=== PATIENT | female | born 1965 | race Caucasian/White ===

== ENCOUNTER 2020-02-04 19:17 | Emergency (ER) | payer OTHER, SELFPAY ==
[2020-02-04 19:31] VITALS: BP 131/83; PULSE 86; RESP 16; TEMP 37.6; O2SAT 97
--- NOTE | 2020-02-04 19:32 | PC.NURSE ---
in br to obtain ua spec.
--- NOTE | 2020-02-04 19:33 | ED.FEMALEGU ---
HPI - Female Genitourinary General Chief complaint: Urogenital-Female Stated complaint: kidney infection Time Seen by Provider: 02/04/20 19:33 Source: patient Mode of arrival: ambulatory Limitations: no limitations History of Present Illness HPI Narrative: Tracie Allen is a 54 yo female with a PMH renal calculi, uti, who comes to express care with c/o lower back pain and dysuria that started on Friday. Rates pain as 10/10. Pain is in her lower back and is dull persistent pain. states this is a recurrent situation for her as she has had multiple UTIs and renal calculi, pain is gradually intensified although she is not having any dysuria per se. Patient states that the Bactrim has worked well for her in the past. Related Data Allergies Allergy/AdvReac Type Severity Reaction Status Date / Time No Known Allergies Allergy Unknown Unverified 11/03/15 17:33 Review of Systems Review of Systems: Narrative: CONSTITUTIONAL: Denies fever, chills, sweats. EYES: Denies visual changes, redness, discharge. ENT: Denies rhinorrhea, congestion, sore throat, otalgia. CARDIOVASCULAR: Denies chest pain, palpitations, edema. RESPIRATORY: Denies dyspnea, wheezing, cough GASTROINTESTINAL: Denies abdominal pain, nausea, vomiting, diarrhea. GENITOURINARY: Denies dysuria, some hematuria, abnormal discharge SKIN: Denies rash or itching. NEUROLOGIC: Denies numbness, or focal weakness. PSYCHIATRIC: Denies anxiety or depression. Has lower back pain PMFSH Family History Family History Other Hypertension Social History Social History Smoking packs per day: 1.5 Smoking cigarettes per day: 30.0 Smoking status: Current every day smoker Alcohol intake: current Comments At time of signature, I agree with nursing past medical, surgical, social and family history. There is no relevant family history pertinent to the presenting complaint. Exam Narrative: Exam Narrative: GENERAL: This is a well-nourished, well-developed patient, in moderate distress. HEAD: normocephalic, atraumatic. EYES: Sclera clear/white. Vision is grossly intact. EARS: External ears normal, Hearing grossly intact. NOSE: External nose normal without nasal discharge, nares without redness, no rhinorrhea. THROAT: Mucous membranes moist, NECK: Neck supple, CARDIOVASCULAR: Regular rate and rhythm without murmurs, gallops, or rubs. RESPIRATORY: Diminished to auscultation. Breath sounds coarse ,equal bilaterally. No wheezes, rales, or rhonchi. GASTROINTESTINAL: Abdomen soft, SKIN: warm, intact with no suspicious lesions or rash, good texture and turgor. NEURO: awake, alert, and oriented to person, place and time. There were no obvious focal neurologic abnormalities. Steady gait EXTREMITIES: Normal range of motion. 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 Course Course Emergency Course: UA shows 3+ leukocyte esterase 1+ blood-discussed antibiotic treatment with patient and will start on Bactrim 1 twice daily x7 days Given Toradol and Zofran in express care Yumiko with patient if pain increases or does not improve should go to the emergency room so that she may be scanned for renal stone Vital Signs Vital signs: Vital Signs Temperature 99.7 F H 02/04/20 19:31 Pulse Rate 86 02/04/20 19:31 Respiratory Rate 16 02/04/20 19:31 Blood Pressure 131/83 02/04/20 19:31 Pulse Oximetry 97 02/04/20 19:31 Temperature 99.7 F H 02/04/20 19:31 Pulse Rate 86 02/04/20 19:31 Respiratory Rate 16 02/04/20 19:31 Blood Pressure 131/83 02/04/20 19:31 Pulse Oximetry 97 02/04/20 19:31 MDM - Female Genitourinary Differential Diagnosis Differential diagnosis: Likely urinary tract infection, cystitis and other (Renal stone) Lab Data Labs: Urine Glucose Negative Reference Range: Negative Urine Bilirubin
[2020-02-04] MEDS: ONDANSETRON HCL ODT 4 MG TABLET SUBLINGUAL (19:42)
[2020-02-04] MEDS: KETOROLAC (*BKC) 60 MG/2 ML VIAL IM (19:42)
== END 2020-02-04 20:02 | disposition home or self-care (01) ==
PROVIDERS: Emergency Provider Nurse Practitioner
DX: N30.01 Acute cystitis with hematuria (principal); F17.210 Nicotine dependence, cigarettes, uncomplicated
CPT/HCPCS: 81003; 87086; 96372; 99213; A9270; G0463; J1885